=== PATIENT | male | born 1990 | race Caucasian/White ===

== ENCOUNTER 2017-11-29 23:25 | Emergency (ER) | payer OTHER ==
[~2017-11-29] VITALS: Ht 175.3 cm; Wt 72.6 kg
[~2017-11-29 23:25] MED LIST: HUMULIN R100 UNIT/1 INJ; NOVOLIN N100 UNIT/1 SUB-Q
== END 2017-11-30 00:30 | disposition home or self-care (01) ==
LOC: ED 23:25
DX: E10.65 Type 1 diabetes mellitus with hyperglycemia (principal); F17.200 Nicotine dependence, unspecified, uncomplicated
CPT/HCPCS: 96372; 99283

== ENCOUNTER 2018-03-10 21:58 | Emergency (ER) | payer OTHER ==
[~2018-03-10] VITALS: Ht 175.3 cm; Wt 72.6 kg
== END 2018-03-11 00:47 | disposition home or self-care (01) ==
LOC: ED 21:58
DX: E10.65 Type 1 diabetes mellitus with hyperglycemia (principal); F17.200 Nicotine dependence, unspecified, uncomplicated
CPT/HCPCS: 96372; 99283; J1815

== ENCOUNTER 2020-02-24 23:59 | Emergency (ER) | payer OTHER ==
[~2020-02-24] VITALS: Ht 175.3 cm; Wt 72.6 kg
--- OUTSIDE RECORDS SUMMARY | 2020-02-25 00:02 | XMS ---
PreManage Notification: TOMER SENA Security Gis Administrator Events No recent Security Events currently on file CRITERIA MET - History of Sepsis Dx CARE PROVIDERS There are no care providers on record at this time. [facility] has no Care Guidelines for this patient. Mercedes VISIT COUNT (12 MO.) 1 YANNICK Khan TOTAL 1 NOTE: Visits indicate total known visits. ED/C VISIT TRACKING (12 MO.) 02/25/2020 00:00 YANNICK Parmar OR TYPE: Emergency COMPLAINT: - BLOOD SUGAR PROBLEM INPATIENT VISIT TRACKING (12 MO.) No inpatient visits to display in this time frame [email or web address]
== END 2020-02-25 01:53 | disposition home or self-care (01) ==
LOC: ED 23:59
DX: E10.65 Type 1 diabetes mellitus with hyperglycemia (principal); E10.621 Type 1 diabetes mellitus with foot ulcer; L97.519 Non-pressure chronic ulcer of other part of right foot with unspecified severity; F17.200 Nicotine dependence, unspecified, uncomplicated
CPT/HCPCS: 80053; 81001; 82010; 82800; 85025; 96374; 96375; 99285-25; J1815; J2405; J7030